=== PATIENT | male | born 1970 | race Caucasian/White ===

== ENCOUNTER → 2016-08-26 | Outpatient (REF) | payer OTHER | LOC: M SMT 08:40 | PROVIDERS: ATTEND Urology | DX: Z30.2 Encounter for sterilization (principal) ==

== ENCOUNTER 2018-02-12 06:59 | Day surgery (SDC) | payer OTHER ==
[2018-02-12] MEDS ORDERED: LIDOCAINE 2% INJ 100 MG/5 ML SDV (FOR ANES.) As Ordered (07:14)
[2018-02-12] MEDS ORDERED: PROPOFOL 200 MG/20 ML VIAL As Ordered (07:14)
[2018-02-12] MEDS ORDERED: NS 1,000 ML IV (08:00)
== END 2018-02-12 08:54 | disposition home or self-care (01) ==
LOC: M OPP 06:59
DX: Z12.11 Encounter for screening for malignant neoplasm of colon (principal); Z80.0 Family history of malignant neoplasm of digestive organs; K64.8 Other hemorrhoids; G47.30 Sleep apnea, unspecified; G43.909 Migraine, unspecified, not intractable, without status migrainosus; J45.909 Unspecified asthma, uncomplicated; G62.9 Polyneuropathy, unspecified; Z79.899 Other long term (current) drug therapy; Z88.8 Allergy status to other drugs, medicaments and biological substances; Z91.040 Latex allergy status
CPT/HCPCS: 45378

== ENCOUNTER 2019-07-25 08:23 | Emergency (ER) | payer BC, OTHER ==
[~2019-07-25] VITALS: Ht 185.4 cm; Wt 122.0 kg
[~2019-07-25 08:23] MED LIST: BENA25CA4 PO; CEFD1CAP8 PO; IMIT100T PO; LEVOTAB10 PO; OMEP40CA97 PO
[2019-07-25] MEDS ORDERED: NS 1,000 ML IV SCH (08:47)
[2019-07-25] MEDS ORDERED: ONDANSETRON 4MG/2ML VIAL (J2405) IV ONE (09:00)
[2019-07-25] MEDS ORDERED: KETOROLAC 30 MG/ML VIAL (J1885) IV ONE (09:00)
[2019-07-25 09:11] LABS: BASO % 0.2 % (0.0-1.0); EOS # 0.4 10^3/uL (0.0-0.5); EOS % 3.1 % (0.0-3.0); HEMATOCRIT 49.4 % (42.0-52.0); HEMOGLOBIN 16.4 g/dl (13.5-17.5); LYMPH # 0.7 10^3/uL (1.5-5.0); LYMPH % 6.3 % (24.0-44.0); MEAN CORPUSCULAR HEMOGLOBIN 28.3 pg (27.0-33.0); MEAN CORPUSCULAR HGB CONC 33.2 g/dl (32.0-36.5); MEAN CORPUSCULAR VOLUME 85.3 fl (80.0-96.0); MONO # 0.4 10^3/uL (0.0-0.8); MONO % 3.7 % (0.0-5.0); NEUTROPHILS # 10.2 10^3/uL (1.5-8.5); NEUTROPHILS % 86.4 % (36.0-66.0); PLATELET COUNT, AUTOMATED 277 10^3/uL (150-450); RED BLOOD COUNT 5.79 10^6/uL (4.30-6.10); WHITE BLOOD COUNT 11.7 10^3/uL (4.0-10.0)
--- NOTE | 2019-07-25 09:16 | REP ---
Clinical: chest and abdominal pain. Comparison: 05/26/2012. Technique: PA and lateral. Findings: The mediastinum and cardiac silhouette are normal. The lung pitts are clear and without acute consolidation, effusion, or pneumothorax. The skeletal structures are intact and normal. Impression: 1. No acute cardiopulmonary process. Electronically Signed by Getachew Sanchez MD 07/25/2019 09:07 A
--- NOTE | 2019-07-25 09:17 | REP ---
Clinical: Acute abdominal pain. Technique: Upright view of the chest with supine and upright views of the abdomen and pelvis. Findings: Frontal upright view of the chest demonstrates no acute cardiopulmonary process or free air below the diaphragm to suspect pneumoperitoneum. Supine and upright views of the abdomen and pelvis demonstrate nonspecific bowel gas pattern without obstruction or perforation. No organomegaly. No abnormal calcifications. Skeletal structures normal for age. Impression: Nonspecific bowel gas pattern. Electronically Signed by Getachew Sanchez MD 07/25/2019 09:08 A
[2019-07-25] MEDS ORDERED: CYCL10TA (09:21)
[2019-07-25] MEDS ORDERED: MONT10TA2 (09:21)
[2019-07-25] MEDS ORDERED: LISI10TA4 (09:21)
[2019-07-25] MEDS ORDERED: SUMA1TAB (09:21)
[2019-07-25] MEDS ORDERED: RANI150T14 (09:21)
[2019-07-25] MEDS ORDERED: BREO1INH (09:21)
[2019-07-25 09:38] LABS: ALBUMIN 3.5 GM/DL (3.2-5.2); BILIRUBIN,DIRECT 0.3 MG/DL (0.0-0.2); BILIRUBIN,TOTAL 1.1 MG/DL (0.2-1.0); TOTAL PROTEIN 6.9 GM/DL (6.4-8.2)
[2019-07-25] MEDS ORDERED: COLA50CA5 PO (11:26)
[2019-07-25] MEDS ORDERED: MIRA3350 PO (11:26)
[2019-07-25 11:57] VITALS: BP 123/80
== END 2019-07-25 12:01 | disposition home or self-care (01) ==
LOC: M ED 08:23
DX: E80.6 Other disorders of bilirubin metabolism (principal); E83.51 Hypocalcemia; K59.00 Constipation, unspecified; E11.9 Type 2 diabetes mellitus without complications; I10 Essential (primary) hypertension; J45.909 Unspecified asthma, uncomplicated; Z91.040 Latex allergy status; Z79.83 Long term (current) use of bisphosphonates; Z79.84 Long term (current) use of oral hypoglycemic drugs; Z79.899 Other long term (current) drug therapy
CPT/HCPCS: 71045; 74021; 80047; 80076; 81001; 83690; 85025; 96361; 96374; 96375; 99284; J1885; J2405

== ENCOUNTER → 2024-07-02 | Outpatient (CLI) | payer BC ==
[~2024-07-02] MED LIST changes: +BREO1INH; -CEFD1CAP8 PO; +CEFD1CAP9 PO; +COLA50CA5 PO; +CYCL-707; +LISI10TA22; +MIRA3350 PO; +MONT10TA97; +OMEP40CA4 PO; -OMEP40CA97 PO; +RANI150T14; +SUMA1TAB
[2024-07-02 10:01] LABS: BLOOD UREA NITROGEN 17 MG/DL (9-23); CREATININE FOR GFR 0.91 MG/DL (0.70-1.30); GLOMERULAR FILTRATION RATE > 60.0 (>56)
== END ==
LOC: M LAB 08:39
PROVIDERS: ATTEND Otolaryngology
DX: D44.0 Neoplasm of uncertain behavior of thyroid gland (principal); R22.1 Localized swelling, mass and lump, neck; R13.10 Dysphagia, unspecified

== ENCOUNTER → 2024-07-02 | Outpatient (CLI) | payer BC ==
[~2024-07-02] MED LIST changes: +E-Z-GAS II EFFERVESCENT PACKET (SODIUM BICARB./CITRIC ACID/SIMETHICONE) As Ordered ONE; +E-Z-HD 98% w/w 340GM SUSP BTL As Ordered ONE; +E-Z-PAQUE 96% w/w SUSP 176GM BTL As Ordered ONE
== END ==
LOC: M RAD 06:33
PROVIDERS: ATTEND Otolaryngology
DX: R22.1 Localized swelling, mass and lump, neck (principal); D44.0 Neoplasm of uncertain behavior of thyroid gland; R13.10 Dysphagia, unspecified; E04.2 Nontoxic multinodular goiter; K44.9 Diaphragmatic hernia without obstruction or gangrene

== ENCOUNTER → 2024-07-07 | Outpatient (CLI) | payer BC ==
[~2024-07-07] MED LIST changes: -E-Z-GAS II EFFERVESCENT PACKET (SODIUM BICARB./CITRIC ACID/SIMETHICONE) As Ordered ONE; -E-Z-HD 98% w/w 340GM SUSP BTL As Ordered ONE; -E-Z-PAQUE 96% w/w SUSP 176GM BTL As Ordered ONE; +ISOVUE-370 76% 100ML VIAL ONE
== END ==
LOC: M PLAIMG 08:22
PROVIDERS: ATTEND Otolaryngology
DX: E04.1 Nontoxic single thyroid nodule (principal)

== ENCOUNTER → 2024-08-25 | Outpatient (CLI) | payer BC ==
[~2024-08-25] MED LIST changes: +GASTROGRAFIN SOLUTION 30ML ONE
== END ==
LOC: M PLAIMG 08:43
PROVIDERS: ATTEND Nurse Practitioner Family
DX: R94.7 Abnormal results of other endocrine function studies (principal)
CPT/HCPCS: 74170; Q9963; Q9967

== ENCOUNTER → 2025-03-01 | Outpatient (CLI) | payer BC ==
[~2025-03-01] MED LIST changes: -GASTROGRAFIN SOLUTION 30ML ONE; -ISOVUE-370 76% 100ML VIAL ONE
== END ==
LOC: M RAD 16:37
PROVIDERS: ATTEND Otolaryngology
DX: E04.1 Nontoxic single thyroid nodule (principal)